=== PATIENT | male | born 1960 | race Caucasian/White ===

== ENCOUNTER → 2018-08-13 07:23 | Outpatient (CLI) | payer OTHER, SELFPAY ==
[2018-08-13 11:15] LABS: Anion Gap 10 (5-15); BUN 18 mg/dL (7-18); BUN/Creat Ratio 16.7 RATIO (10-20); Calcium,Total 8.9 mg/dL (8.5-10.1); Chloride 103 mmol/L (98-107); Cholesterol 207 mg/dL (200); Creatinine, Serum 1.08 mg/dL (0.70-1.30); EST Glomerular Filtration Rate 75 mL/min (>60); Est Glom Filt Rate - Afr Amer 90 mL/min (>60); Glucose 100 mg/dL (74-106); High Density Lipoprotein 38 mg/dL; PSA,Total - Annual Screen 0.29 ng/mL (0.00-4.00); Potassium 4.4 mmol/L (3.5-5.1); Sodium Level 139 mmol/L (136-145); Triglycerides 267 mg/dL; Very Low Density Lipoprotein 53 mg/dL (5-40)
== END ==
PROVIDERS: Family Provider Family Medicine; PCP Family Medicine; Referring Provider Family Medicine; Visit Provider Family Medicine
DX: Z12.5 Encounter for screening for malignant neoplasm of prostate (principal); Z13.1 Encounter for screening for diabetes mellitus; Z13.220 Encounter for screening for lipoid disorders
CPT/HCPCS: 36415; 80048; 80061; 84153; G0103

== ENCOUNTER 2019-01-23 16:22 | Emergency (ER) | payer OTHER, SELFPAY ==
[2019-01-23 16:23] VITALS: BP 93/80; PULSE 93; RESP 18; TEMP 36.6; O2SAT 96; BMI 33.7
--- NOTE | 2019-01-23 16:49 | ED.DCSUM_ITS ---
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 When he felt his right hamstring tightening up going around a corner and he ended up falling. He notes continued pain in the right hamstring. He points to the mid muscle belly as the source of pain. He feels better with the leg hip and knee flexed. He denies any other injuries Physical Examination: Afebrile vital signs stable Gen: Well-nourished well-developed Head: Normocephalic atraumatic Eyes: Perrl EOMI ENT: TMs clear no rhinorrhea moist mucous membranes Neck: Supple no lymphadenopathy no JVD nontender CVS: Regular rate rhythm no murmurs normal S1-S2 Respiratory: No distress clear to auscultation bilaterally chest nontender Abdomen: Soft nontender nondistended normal bowel sounds no masses Back: Nontender Extremity: Tender to palpation in the right mid hamstring muscle belly. No ecchymosis. Neurovascular intact. No buttock pain no pelvic pain particularly over the pubic rami. Skin: Normal color no rash Neuro: alert orientated ?3 CN II-XII intact normal strength sensation reflexes gait cerebellar Psych: Normal affect normal mood Emergency Department Course and Treatment: Ivan wrap applied. Return instructions given and home care discussed. Follow-up was with [facility] Impression: 1. Right hamstring muscle strain This note was generated with [employer] dictation software. It may contain incorrect words, spelling, and punctuation that were not noted in review of the chart prior to signing ED Disposition - Plan for ED Patient: Disposition: Home or Assisted Living Instructions: ED Strain Muscle Ext [facility] [GROUP OF PHYSICIANS] -
== END 2019-01-23 18:31 | disposition home or self-care (01) ==
PROVIDERS: Emergency Provider Emergency Medicine; Family Provider Family Medicine; PCP Family Medicine
DX: S76.911A Strain of unspecified muscles, fascia and tendons at thigh level, right thigh, initial encounter (principal); W19.XXXA Unspecified fall, initial encounter; Y93.02 Activity, running; Y92.89 Other specified places as the place of occurrence of the external cause; Y99.0 Civilian activity done for income or pay; I10 Essential (primary) hypertension
CPT/HCPCS: 99283

== ENCOUNTER → 2019-09-13 08:10 | Outpatient (CLI) | payer OTHER, SELFPAY ==
[2019-01-25 09:14] VITALS: BMI 33.7
--- NOTE | 2019-09-13 08:29 | RAD_ITS ---
STUDY: X-RAY - RIGHT SHOULDER REASON FOR EXAM: Male, 58 years old. PAIN TECHNIQUE: 4 view(s) of the shoulder. COMPARISON: 04/03/2014 FINDINGS: There is worsening degenerative arthrosis of the glenohumeral articulation. Widening of the acromioclavicular joint compatible with partial clavicular resection. Normal acromion. Normal humeral head and visualized proximal humerus. The soft tissue structures are unremarkable. Normal visualized pulmonary apex. RAD/Shoulder min 2 Views IMPRESSION: 1. Worsening glenohumeral joint arthrosis. 2. Partial claviclectomy Electronically Signed: Gerry Lyle MD ([facility]) at 12:36 EST , Service support ,
[2019-09-13 10:23] LABS: Anion Gap 4 (5-15); BUN 18 mg/dL (7-18); BUN/Creat Ratio 16.1 RATIO (10-20); Calcium,Total 9.3 mg/dL (8.5-10.1); Chloride 106 mmol/L (98-107); Cholesterol 208 mg/dL (200); Creatinine, Serum 1.12 mg/dL (0.70-1.30); EST Glomerular Filtration Rate 71 mL/min (>60); Est Glom Filt Rate - Afr Amer 86 mL/min (>60); Glucose 102 mg/dL (74-106); High Density Lipoprotein 41 mg/dL; Potassium 4.4 mmol/L (3.5-5.1); Sodium Level 139 mmol/L (136-145); Triglycerides 204 mg/dL; Very Low Density Lipoprotein 41 mg/dL (5-40)
[2019-09-13 10:28] LABS: Microalbumin,Random Urine 7.4 mg/L (NO RANGE EST.)
== END ==
PROVIDERS: Family Provider Family Medicine; PCP Family Medicine; Referring Provider Family Medicine; Visit Provider Family Medicine
DX: Z00.00 Encounter for general adult medical examination without abnormal findings (principal); Z12.5 Encounter for screening for malignant neoplasm of prostate; M19.011 Primary osteoarthritis, right shoulder; Z13.220 Encounter for screening for lipoid disorders; Z13.1 Encounter for screening for diabetes mellitus
CPT/HCPCS: 36415; 73030; 80048; 80061; 82043; 84153; G0103

== ENCOUNTER → 2019-11-22 09:45 | Outpatient (CLI) | payer OTHER, SELFPAY ==
[2019-01-25 09:14] VITALS: BMI 33.7
--- NOTE | 2019-11-22 09:50 | RAD_ITS ---
EXAM DESCRIPTION: Right shoulder arthrogram CLINICAL HISTORY: 58 years Male, years of pain, osteoarthritis COMPARISON: None. TECHNIQUE: 137 seconds fluoroscopy was performed. A needle was inserted into the right shoulder joint and contrast was intra-articularly injected. FINDINGS: There is significant narrowing and irregularity of the right shoulder joint due to degenerative arthritis. Contrast material was instilled into the right shoulder and verify the intra-articular position of the needle tip. After this 2 cc of Bethamethasone followed by 4 cc of 1% Xylocaine. The patient tolerated the procedure well and was sent home in good condition. RAD/Inj/Asp Tab Jt Should/Hip/Knee IMPRESSION: A right shoulder injection was performed without incidence in this patient with severe degenerative arthritis of the right shoulder. Electronically Signed: Tim Kinsey, at 14:36 EST Tel , Service support ,
== END ==
PROVIDERS: PCP Family Medicine; Referring Provider Specialist; Visit Provider Specialist
DX: M19.211 Secondary osteoarthritis, right shoulder (principal)
CPT/HCPCS: 20610; 77002; Q9965; J0702

== ENCOUNTER → 2020-10-28 08:03 | Outpatient (CLI) | payer OTHER, SELFPAY ==
[2019-01-25 09:14] VITALS: BMI 33.7
[2020-10-28 11:42] LABS: Anion Gap 8 (5-15); BUN 21 mg/dL (7-18); Calcium,Total 9.3 mg/dL (8.5-10.1); Chloride 105 mmol/L (98-107); EST Glomerular Filtration Rate 81 mL/min (>60); Est Glom Filt Rate - Afr Amer 98 mL/min (>60); Glucose 96 mg/dL (74-106); PSA,Total - Annual Screen 0.31 ng/mL (0.00-4.00); Potassium 4.1 mmol/L (3.5-5.1); Sodium Level 137 mmol/L (136-145)
== END ==
PROVIDERS: PCP Family Medicine; Referring Provider Family Medicine; Visit Provider Family Medicine
DX: I10 Essential (primary) hypertension (principal); Z12.5 Encounter for screening for malignant neoplasm of prostate
CPT/HCPCS: 36415; 80048; 84153; G0103

== ENCOUNTER → 2021-05-12 08:38 | Outpatient (CLI) | payer OTHER, SELFPAY ==
[2019-01-25 09:14] VITALS: BMI 33.7
== END ==
LOC: MFPLAB 08:39 → LABSPEC 08:39
PROVIDERS: PCP Family Medicine; Referring Provider Family Medicine; Visit Provider Family Medicine
DX: R09.89 Other specified symptoms and signs involving the circulatory and respiratory systems (principal)
CPT/HCPCS: 87635; U0005; U0003

== ENCOUNTER → 2021-09-22 11:05 | Outpatient (CLI) | payer OTHER, SELFPAY ==
[2021-09-22 12:47] LABS: Anion Gap 8 (5-15); BUN 21 mg/dL (7-18); BUN/Creat Ratio 19.3 RATIO (10-20); Calcium,Total 9.7 mg/dL (8.5-10.1); Chloride 101 mmol/L (98-107); Cholesterol 240 mg/dL (200); Creatinine, Serum 1.09 mg/dL (0.70-1.30); EST Glomerular Filtration Rate 73 mL/min (>60); Est Glom Filt Rate - Afr Amer 88 mL/min (>60); Glucose 96 mg/dL (74-106); High Density Lipoprotein 42 mg/dL; Potassium 4.3 mmol/L (3.5-5.1); Sodium Level 136 mmol/L (136-145); Triglycerides 292 mg/dL; Very Low Density Lipoprotein 58 mg/dL (5-40)
== END ==
PROVIDERS: PCP Family Medicine; Referring Provider Family Medicine; Visit Provider Family Medicine
DX: Z00.00 Encounter for general adult medical examination without abnormal findings (principal)
CPT/HCPCS: 36415; 80048; 80061

== ENCOUNTER → 2024-12-27 | Outpatient (CLI) | payer MEDICARE, SELFPAY ==
[2024-12-27 11:34] LABS: ALB/GLOB Ratio 1.7 RATIO (0.9-2.4); AST(SGOT) 29 U/L (<=37); Alanine Aminotransfer ALT/SGPT 25 U/L (<=46); Albumin, Serum 4.4 g/dL (3.4-4.8); Alkaline Phosphatase 54 U/L (40-129); Anion Gap 12 (5-15); BUN 20 mg/dL (4-19); BUN/Creat Ratio 20.3 RATIO (10-20); Calcium,Total 9.8 mg/dL (7.6-11.0); Carbon Dioxide 24.4 mmol/L (21.0-32.0); Chloride 103 mmol/L (98-108); Cholesterol 204 mg/dL (<=200); Creatinine, Serum 0.99 mg/dL (0.70-1.20); EST Glomerular Filtration Rate 85 (>60); Globulin 2.7 g/dL (2.2-4.2); Glucose 99 mg/dL (70-99); High Density Lipoprotein 41 mg/dL; Low Density Lipoprotein Calc. 133 mg/dL; PSA,Total - Annual Screen 0.31 ng/mL (0.02-4.00); Potassium 4.2 mmol/L (3.3-5.1); Sodium Level 139 mmol/L (133-145); Total Bilirubin 0.98 mg/dL (0.00-1.30); Triglycerides 148 mg/dL; Very Low Density Lipoprotein 30 mg/dL (5-40); cholesterol:hdl ratio screen 4.96
== END | disposition home or self-care (01) ==
PROVIDERS: PCP Family Medicine; Referring Provider Family Medicine; Visit Provider Family Medicine
DX: E78.00 Pure hypercholesterolemia, unspecified (principal); Z53.20 Procedure and treatment not carried out because of patient's decision for unspecified reasons; Z12.5 Encounter for screening for malignant neoplasm of prostate
CPT/HCPCS: 36415; 80053; 80061; 84153; G0103

== ENCOUNTER → 2025-01-13 | Outpatient (CLI) | payer MEDICARE, SELFPAY ==
--- NOTE | 2025-01-13 08:00 | AAAS_ITS ---
Reason For Study Reason For Study: AAA Screening Aorta Measurements Aorta Doppler Measurements Proximal aorta measures2.16x2.23cm. in cross-sectional axis.Peak systolic flow velocities within the proximal aorta Proximal aorta measures2.16cm. in longitudinal axis. measure 99.5 cm/sec. Mid aorta measures1.59x1.65cm. in cross-sectional axis. Peak systolic flow velocities within the mid aorta measure Mid aorta measures1.67cm. in longitudinal axis. 116.1 cm/sec. Distal aorta measures1.64x1.67cm. in cross-sectional axis. Peak systolic flow velocities within the distal aorta Distal aorta measures1.84cm. in longitudinal axis. measure 107.3 cm/sec. Left Iliac Artery Left iliac artery measures 1.11x1.11 cm. in the cross-sectional axis. Left iliac artery measures 1.21 cm. in the longitudinal axis. Peak systolic velocity in the left iliac artery measures 145.2 cm/sec. Right Iliac Artery Right iliac artery measures 1.12x1.14 cm. in the cross-sectional axis. Right iliac artery measures 1.15 cm. in the longitudinal axis. Peak systolic velocity in the right iliac artery measures 170.3 cm/sec. Procedure Aorta IVC Iliac vasculature or bypass grafts [id number]. Exam performed in department. VL/AAA Screening Interpretation Summary Aorta patent, normal caliber. Bilateral iliac arteries patent, normal caliber. Ordering Physician: Dain Woods Referring Physician: Dain Woods Performed By: Fatemeh Boyer RVT
== END | disposition home or self-care (01) ==
LOC: CVS 07:59
PROVIDERS: PCP Family Medicine; Referring Provider Family Medicine; Visit Provider Family Medicine
DX: Z13.6 Encounter for screening for cardiovascular disorders (principal)
CPT/HCPCS: 76706

== ENCOUNTER → 2025-02-04 | Outpatient (CLI) | payer MEDICARE, SELFPAY ==
[2025-02-04] MEDS: Lidocaine 1% (5 ml sdv) 5 ML Vial 4 ML INFILT (13:45)
--- NOTE | 2025-02-04 13:45 | US_ITS ---
PROCEDURE: NEEDLE PLACEMENT 02/04/2025 REASON FOR EXAM: Painful osteoarthritis. TECHNIQUE: Procedure: Following informed consent, and using standard sterile technique, a right glenohumeral joint injection was performed under ultrasound guidance, via a posterior approach. A 22 gauge spinal needle was placed under ultrasound guidance, with injection a combination of 2 mL (12 mg) betamethasone and 4 mL 1% lidocaine into the joint. Following removal of the needle and hemostasis, the patient was asked to move his shoulder, and indicated noticeable improvement in symptoms. No complication was encountered, and the patient left the department in good condition without significant complaint. COMPARISON: None available. US/Needle Placement IMPRESSION: Successful ultrasound-guided right glenohumeral joint steroid and anesthetic in jection. Reading Location: [place] [id number]
[2025-02-04] MEDS: Betamethasone/Betamethasone 30 MG/5 ML Vial 12 MG INTRAARTIC (15:36)
== END | disposition home or self-care (01) ==
LOC: RAD 13:28
PROVIDERS: PCP Family Medicine; Referring Provider Specialist; Visit Provider Specialist
DX: M19.211 Secondary osteoarthritis, right shoulder (principal)
CPT/HCPCS: 20611; 76942; J0702

== ENCOUNTER 2025-05-19 08:08 | Outpatient (CLI) | payer MEDICARE, SELFPAY ==
--- NOTE | 2025-05-19 08:15 | US_ITS ---
PROCEDURE: US NEEDLE BIOPSY/SOFT TISSUE N/A REASON FOR EXAM: Advanced osteoarthritis of the left glenohumeral joint. TECHNIQUE: Ultrasound guided left glenohumeral joint steroid and anesthetic injection. COMPARISON: None. FINDINGS: Procedure: Following informed consent, and using standard sterile technique, a left glenohumeral joint anesthetic and steroid injection was performed under ultrasound guidance, via a posterior approach. A 22 gauge spinal needle was placed under ultrasound guidance into the left glenohumeral joint, and following this, a combination of 2 mL betamethasone and 4 mL 1% lidocaine was injected. Following the procedure, the patient indicated some degree of symptomatic improvement, upon movement of the left shoulder joint. No complication was encountered, in the patient left the department in good condition. US/US Needle Biopsy/Soft Tissue IMPRESSION: Successful anesthetic and steroid ultrasound-guided injection of the left gleno humeral joint. Reading Location: [place] [id number]
== END 2025-05-19 23:59 | disposition home or self-care (01) ==
LOC: RAD 08:11
PROVIDERS: PCP Family Medicine; Referring Provider Specialist; Visit Provider Specialist
DX: M19.012 Primary osteoarthritis, left shoulder (principal)
CPT/HCPCS: 20611; 76942; J0702